=== PATIENT | female | born 1970 | race Two or more races ===

== ENCOUNTER → 2024-07-06 | Outpatient (CLI) | payer MEDICAID, SELFPAY ==
--- NOTE | 2024-07-06 15:12 | XR_ITS ---
Examination: PA lateral chest 2 views Technique: Upright PA lateral chest 2 views Exam date and time: July 06, 2024 1520 hrs. Indications: Coughing one week. Findings: Normal heart size Lungs are clear. The osseous structures are intact Impression: No active disease
== END | disposition home or self-care (01) ==
PROVIDERS: PCP Physician Assistant; Referring Provider Nurse Practitioner Family; Visit Provider Nurse Practitioner Family
DX: R05.9 Cough, unspecified (principal)
CPT/HCPCS: 71046

== ENCOUNTER → 2024-07-27 | Outpatient (CLI) | payer MEDICAID, SELFPAY ==
--- NOTE | 2024-07-27 14:30 | XR_ITS ---
Examinations: MRA brain without intravenous contrast. 3-D vascular reconstructions Date and time of exam: July 27, 2024 1438 hours INDICATIONS: Diagnosis anterior communicating artery area aneurysm, headaches 3 years blurred vision Technique: Multiple axial and sagittal images of the brain have been obtained MRA brain carotid images without contrast obtained, including 3-D postprocessing, vascular maximum intensity projection images Findings: 3 mm anterior communicating artery aneurysm is depicted projecting between the pericallosal arteries Mild irregularity of the middle cerebral branches No middle cerebral or posterior cerebral artery aneurysm depicted Impression: 3 mm anterior communicating artery aneurysm
== END | disposition home or self-care (01) ==
PROVIDERS: PCP Physician Assistant
DX: I67.1 Cerebral aneurysm, nonruptured (principal)
CPT/HCPCS: 70544

== ENCOUNTER 2024-08-10 14:33 | Outpatient (RCR) | payer MEDICAID, SELFPAY ==
--- NOTE | 2024-08-10 15:07 | PT.OIERPT ---
PT OP Initial Eval Patient Information Outpatient Physical Therapy Treatment Date: 08/10/24 Visit Reasons: Pain in left knee Medical Diagnosis: M25.562 Start of Care: 08/10/24 Date of Onset: 5 yrs ago Smoking Status Smoking Status: Never smoker Initial Assessment Subjective: Pt is 54 yr old urdu speaking female who c/o L knee pain x5 yrs. Increased pain with going up and down stairs and uphill/downhill as well as squatting. She is limited with gardening due to pain with kneeling and squatting. PMH: renal cyst excision 2021, aneurysm repair 2022 Imaging: none Pt goal: to get rid of the pain Objective: L knee AROM: Extension:full Flexion: full Patella compression: positive Crepitus: positive with knee extension in sitting Strength: Quads: 4/5 HS: 4/5 Assessment: Pt presents with significant crepitus under patella which is likely causing pain when she loads the knee. She is not likely going to benefit from skilled therapy and will likely have more pain after therapy visits. PT recommends further diagnostic imaging of L knee and orthopedic evaluation. Short Term and Intermediate Goals Eval and D/C Treatment Plan Eval and D/C Certification Dates: 08/10/24 to 08/16/24 Procedure Charges OP PT Eval Mod Complex 30 minutes: Yes
== END 2024-09-03 23:59 | disposition home or self-care (01) ==
LOC: CPTX 14:33
PROVIDERS: PCP Physician Assistant; Referring Provider Physician Assistant; Visit Provider Physician Assistant
DX: M25.562 Pain in left knee (principal)
CPT/HCPCS: 97162

== ENCOUNTER → 2024-09-30 | Outpatient (CLI) | payer MEDICAID, SELFPAY ==
--- NOTE | 2024-09-30 08:30 | XR_ITS ---
Exam: MRI knee without contrast, left Date and time of exam: September 30, 2024 0915 hours INDICATIONS: Anterior knee pain joint clicking joint locking 3 years Technique: Multiple axial, coronal, and sagittal sections on the knee have been obtained. T2-Weighted sagittal, fat-suppressed images, TR 3,500, TE 62, T2 weighted coronal fat-saturated images, TR 3,500, TE 62 Proton density sagittal sections, TR 1800, TE 31. T-1 weighted coronal images, TR 524, TE 13.0 Findings: Medial meniscus anterior horn intact. Medial meniscus, body is intact. Posterior horn medial meniscus intact. Lateral meniscus anterior horn is intact Lateral meniscus, body is intact Posterior horn lateral meniscus is intact Anterior cruciate ligament high-grade sprain Posterior cruciate ligament appears intact. Knee effusion is small. Quadriceps and patellar tendons appear intact. There is no evidence of tendinosis. Inflammatory change or fracture of Hoffa's fat pad is not seen. Medial patellar facet demonstrates severe thinning. Lateral patellar facet cartilage demonstrates severe thinning. Trochlear cartilage demonstrates severe thinning. Marrow signal adequate Medial collateral ligament appears intact. No meniscocapsular separation is seen. Illiotibial band and fibular collateral ligament are intact. Biceps femoris tendons appear intact. Medial femoral condylar articular cartilage demonstrates moderate thinning. Lateral femoral condylar articular cartilage demonstratesmoderate thinning. Tibial plateau cartilage demonstrates moderate thinning. Impression: High-grade sprain anterior cruciate ligament Severe thinning cartilage patellofemoral joint
== END | disposition home or self-care (01) ==
LOC: SMRI 07:55
PROVIDERS: Referring Provider Physician Assistant; Visit Provider Physician Assistant
DX: S83.512A Sprain of anterior cruciate ligament of left knee, initial encounter (principal); X58.XXXA Exposure to other specified factors, initial encounter; M25.862 Other specified joint disorders, left knee
CPT/HCPCS: 73721

== ENCOUNTER → 2024-10-21 | Outpatient (CLI) | payer MEDICAID, SELFPAY ==
--- NOTE | 2024-10-21 12:40 | XR_ITS ---
Examination: Bone densitometry Date and time of exam:October 1109 hours INDICATIONS: Hysterectomy age 39 Technique: Lumbar spine and hip total bone mineralization values of an calculated. Peak reference and age match control results have been displayed. Findings: Lumbar spine total bone mineralization is0.819 gm/cm2. This is 2.1 standard deviations below peak reference. This is 1.0 standard deviations below age-matched controls. Hip total bone mineralization is 0.803 gm/cm2 This is 1.2 standard deviations below peak reference. This is 0.4 standard deviations below age-matched controls Impression: There is osteopenia based on lumbar spine measurements. There is osteopenia based on hip measurements
== END | disposition home or self-care (01) ==
PROVIDERS: PCP Physician Assistant; Referring Provider Physician Assistant; Visit Provider Physician Assistant
DX: M85.89 Other specified disorders of bone density and structure, multiple sites (principal)
CPT/HCPCS: 77080

== ENCOUNTER → 2024-12-13 | Outpatient (CLI) | payer MEDICAID, SELFPAY ==
--- NOTE | 2024-12-13 12:00 | XR_ITS ---
Examination: MRI thoracic spine without contrast. Date and time of exam: December 13, 2024 1255 hours INDICATIONS: Worsening mid back pain beginning 2002 Technique: Multiple sagittal and axial images of the thoracic spine have been obtained. T1 weighted localizer, sagittal T2 weighted images, TR 30-50, TE 148, T1 weighted sagittal images, TR 650, TE 14, T2-weighted transverse images, TR 6770, TE 142 Findings: Minimal kyphosis dorsal spine No acute thoracic fracture Moderate diffuse thoracic disc narrowing Diffuse thoracic disc desiccation Adequate marrow signal thoracic vertebral bodies Minimal thoracic spondylosis No focal thoracic disc protrusion 2 mm T6-T7 thoracic disc bulges No impingement upon the thoracic cord Impression: Moderate diffuse thoracic degenerative disc disease No focal thoracic disc protrusion impinging upon the thoracic cord
== END | disposition home or self-care (01) ==
PROVIDERS: PCP Orthopaedic Surgery; Referring Provider Orthopaedic Surgery; Visit Provider Orthopaedic Surgery
DX: M51.34 Other intervertebral disc degeneration, thoracic region (principal)
CPT/HCPCS: 72146

== ENCOUNTER 2025-02-03 09:00 | Outpatient (RCR) | payer MEDICAID, SELFPAY ==
--- NOTE | 2025-01-05 08:08 | PT.OIERPT ---
PT OP Initial Eval Patient Information Outpatient Physical Therapy Treatment Date: 01/05/25 Visit Reasons: LBP Medical Diagnosis: M54.5 M54.15 Treatment Dx #1: LBP with radiculopathy Start of Care: 01/05/25 Date of Onset: 5 yrs ago Smoking Status Smoking Status: Never smoker Initial Assessment Subjective: Pt is 54 yr old italian speaking female who reports LBP and L LE pain x5 yrs. The L LE is numb at night and with sitting in the car for 1 hr and the L knee hurts. Increased pain with prolonged sitting, bending fwd and lifting things. PMH: cerebral aneurism 2022 Imaging: MRI of L/S 2023 L5-S1 2 mm central lumbar disc bulge extending to the left foraminal region with mild left L5 ganglionic compression, L4-L5 2 mm central lumbar disc bulge Pt goal: to get rid of the pain Objective: Trunk ArOM: ? B SB 50% of normal with pain ? Extension: 20% with pain around L4-5, L5-S1 ? Flexion: 12 from floor with LBP ? B rotation: 60% with pain ? TTP: moderate paraspinals L5-S1 ? Neuro: L SLR: positive Assessment: Pt presents with trunk flexion sensitivity and overlying myofascial pain ? and TTP around L5-S1 consistent with MRI that revealed ? lower lumbar disc bulge(s) with radiculopathy. Pt requires skilled therapy in order to decrease ? pain and improve sitting/standing tolerance and has fair rehab potential. Eval ?followed by HEP printout. Short Term and Prn Physical Therapist Goals 1. Ind with HEP ? 2. Improved sitting/standing tolerance to 30 minutes with <=4/10 LBP ? 3. Decreased lower paraspinal TTP from mod to min 4. Improved HH chore tolerance to at least 30 minutes with <=3/10 LBP and no ?increase in LE ssx Treatment Plan 1. Manual therapy ? 2. Therex ? 3. Modalities as indicated, moist heat, ice, estim, mechanical traction Frequency and Duration: 1-2x a week for 12 Rx plus the evaluation. We will need provider's signature and more auth to continue past 6 Rx's Certification Dates: 01/05/25 Procedure Charges OP PT Eval Mod Complex 30 minutes: Yes
--- NOTE | 2025-01-12 09:07 | PT.ODAYNRPT ---
PT Outpatient Daily Note OP Daily Note Outpatient Physical Therapy Treatment Date: 01/12/25 Visit Reasons: LBP Subjective: Continued LBP Objective: See F/S for therex Assessment: High tissue irritability with trunk extension with increased pressure Plan: Continue as tolerated Length of Time (minutes) of Treatment: 30 Minutes Procedure Charges Therapeutic Exercise 30 minutes: Yes
--- NOTE | 2025-01-17 08:30 | PT.ODAYNRPT ---
PT Outpatient Daily Note OP Daily Note Outpatient Physical Therapy Treatment Date: 01/17/25 Visit Reasons: LBP Subjective: Continued LBP but the trunk extension exercises gave a little relief Objective: See F/S for therex MT: [facility] L/S x5' Assessment: Moderate tissue irritability with trunk extension but good response after last visit Plan: Continue as tolerated Length of Time (minutes) of Treatment: 30 Minutes Procedure Charges Therapeutic Exercise 30 minutes: Yes
--- NOTE | 2025-01-19 08:18 | PT.ODAYNRPT ---
PT Outpatient Daily Note OP Daily Note Outpatient Physical Therapy Treatment Date: 01/19/25 Visit Reasons: LBP Subjective: Continued LBP but the trunk extension exercises gave a little relief Objective: See F/S for therex Mechanical traction L/S: 7' at 30 lbs Assessment: Less tissue irritability with trunk extension and good response after last visit Plan: Continue as tolerated Length of Time (minutes) of Treatment: 30 Minutes Procedure Charges Therapeutic Exercise 30 minutes: Yes
--- NOTE | 2025-01-25 08:35 | PT.ODAYNRPT ---
PT Outpatient Daily Note OP Daily Note Outpatient Physical Therapy Treatment Date: 01/25/25 Visit Reasons: LBP Subjective: Continued LBP but the trunk extension exercises gave a little relief so the pain isn't constant like it's been. Objective: See F/S for therex Mechanical traction L/S: 7' at 30 lbs Assessment: Less tissue irritability with trunk extension and good response after last visit Plan: Continue as tolerated Length of Time (minutes) of Treatment: 30 Minutes Procedure Charges Therapeutic Exercise 30 minutes: Yes
--- NOTE | 2025-01-27 10:16 | PT.ODAYNRPT ---
PT Outpatient Daily Note OP Daily Note Outpatient Physical Therapy Treatment Date: 01/27/25 Visit Reasons: LBP Subjective: Pt reports noticing some progress with symptoms, pt is performing HEP. Objective: Please see flow sheet for ther ex list. Assessment: Pt demonstrates good technique with press up exercise indicating compliance with HEP. Plan: Continue with poC. Length of Time (minutes) of Treatment: 30 Minutes Procedure Charges Therapeutic Exercise 30 minutes: Yes
--- NOTE | 2025-02-03 09:49 | PT.ODS1RPT ---
PT OP Progress/Discharge Note Date of Service: 02/03/25 Progress Note/DC Note Progress Note/Discharge Note: Progress Note Patient Information Visit Reasons: LBP Service Continue Service or Discharge: Continue Service Status Subjective: Continued LBP with temporary relief after therapy visits. Objective: Trunk AROM: FB: 12 from floor Extension: 20% with pain Rotation: 60% with pain B TTP: moderate of L5-S1 region Assessment: Pt has attended 6/6 Rx sessions with limited progress with therapy goals due to continued LBP. We have been focusing on the bulging discs with trunk extension progression but that has likely been provoking lower lumbar facet joint pain due to increased sacral angle. Pt would benefit from additional therapy visits to focus on the sacral angle which should help reduce pain. Plan: Request additional authorized visits x6. We will need insurance authorization and provider's signature since original order was for 6 visits. Procedure Charges Therapeutic Exercise 30 minutes: Yes
== END 2025-02-03 23:59 | disposition home or self-care (01) ==
LOC: CPTX 09:00
PROVIDERS: PCP Physician Assistant; Referring Provider Physician Assistant; Visit Provider Physician Assistant
DX: M54.15 Radiculopathy, thoracolumbar region (principal)
CPT/HCPCS: 97110; 97162

== ENCOUNTER → 2025-03-15 | Outpatient (CLI) | payer MEDICAID, SELFPAY ==
--- NOTE | 2025-03-15 15:06 | XR_ITS ---
Examination: Lumbar spine, 5 views Technique: Lumbar spine AP, lateral, coned lateral lower lumbar spine, bilateral obliques 5 views Exam date and time: March 15, 2025 1520 hours, comparison December 23, 2022 INDICATIONS: Low back pain 3 years. FINDINGS: Severe osteopenia. Lumbar levoscoliosis 12 degrees Moderate diffuse facet arthropathy. No lumbar fracture Moderate to advanced diffuse lumbar degenerative disc disease, most severe L2-L3, L5-S1 IMPRESSION: Moderate to advanced diffuse lumbar degenerative disc disease, most severe at L2-L3, L5-S1
--- NOTE | 2025-03-15 15:06 | XR_ITS ---
Examination: Sacroiliac joints 3 views TECHNIQUE: AP, RPO and LPO sacroiliac joints 3 views Date and time: March 15, 2025, 1520 hours INDICATIONS: Sacral pain 3 years. FINDINGS: Moderate bilateral sacroiliitis, sclerosis involving the SI joints Symmetrical sacral foramina No fractures IMPRESSION: Moderate bilateral sacroiliitis
--- NOTE | 2025-03-15 15:06 | XR_ITS ---
Examination: Cervical spine 7 views TECHNIQUE: AP, lateral, lateral cervical spine standing flexion, lateral cervical spine standing extension JULIAN, DYLAN, coned AP odontoid 7 views Date and time: March 15, 2025 1546 hours INDICATIONS: Neck pain 3 years. FINDINGS: Significant osteopenia. No cervical fracture. Intact odontoid. Moderate degenerative disc disease C5-C6, C6-C7, C7-T1 Mild reduced range of motion between flexion and extension Moderate bilateral neural foraminal stenosis C5 C6, C6 C7, C7 T1 IMPRESSION: Moderate degenerative disc disease C5-C6, C6-C7, C7-T1 with moderate bilateral neural foraminal stenosis at these levels
[2025-03-15 21:13] LABS: Hepatitis A Antibody IgM Non Reactive (Non React); Hepatitis B Core Antibody IgM Non Reactive (Non React); Hepatitis B Surface Antigen Non Reactive (Non React); Hepatitis C Antibody Non Reactive (Non React)
[2025-03-16 11:57] LABS: Cocci Serology, IgM Negative (Negative)
[2025-03-17 10:46] LABS: Cocci Serology, IgG Negative (Negative)
== END | disposition home or self-care (01) ==
LOC: CDIM 16:15 → COPL 16:23
PROVIDERS: PCP Physician Assistant; Referring Provider Physician Assistant; Visit Provider Radiology Diagnostic Radiology
DX: M46.1 Sacroiliitis, not elsewhere classified (principal); M51.379 Other intervertebral disc degeneration, lumbosacral region without mention of lumbar back pain or lower extremity pain; M50.33 Other cervical disc degeneration, cervicothoracic region; M48.03 Spinal stenosis, cervicothoracic region; M54.89 Other dorsalgia
CPT/HCPCS: 36415; 72052; 72110; 72202; 80074; 86331; 86635

== ENCOUNTER → 2025-03-17 | Outpatient (CLI) | payer MEDICAID, SELFPAY ==
[2025-03-17 09:03] LABS: Quantiferon-TB* See Sep Rpt
== END | disposition home or self-care (01) ==
PROVIDERS: PCP Physician Assistant; Referring Provider Physician Assistant; Visit Provider Physician Assistant
DX: M54.89 Other dorsalgia (principal)
CPT/HCPCS: 86480